=== PATIENT | male | born 1975 | race Caucasian/White ===

== ENCOUNTER 2017-07-02 15:57 | Emergency (ER) | payer OTHER ==
[~2017-07-02] VITALS: Ht 177.8 cm; Wt 95.3 kg
[2017-07-02] MEDS ORDERED: AMOXICILLIN 50500 MG PO (16:14)
[2017-07-02] MEDS ORDERED: PRISTIQ50 M1 PO (16:15)
[2017-07-02] MEDS ORDERED: PROZAC10 MG PO (16:15)
[2017-07-02] MEDS ORDERED: KEFLEX500 M1 PO (16:36)
[2017-07-02] MEDS ORDERED: BACTRIM DS TAB1 EACH PO (16:36)
[2017-07-02 17:22] VITALS: BP 156/78
== END 2017-07-02 17:35 | disposition home or self-care (01) ==
LOC: M.ERS 15:57
DX: L02.212 Cutaneous abscess of back [any part, except buttock and flank] (principal); F32.9 Major depressive disorder, single episode, unspecified